=== PATIENT | female | born 1975 | race Caucasian/White ===

== ENCOUNTER 2016-11-05 19:04 | Emergency (ER) | payer OTHER ==
[~2016-11-05] VITALS: Ht 162.6 cm; Wt 75.0 kg
[~2016-11-05 19:04] MED LIST: AMLO5TAB2 PO; ASPI-973 PO; BUPR-97 PO; CARV25TA2 PO; CLOP75TA3 PO; FISHOIL ORAL; FURO40TA4 PO; INSU100I13 SUBQ; INSU100V7 SUBQ; ISOS60TA2 PO; LIP40 PO; LOSA100T29 PO; METF500T4 PO; NITR0.4T SL; SPIR25TA3 PO
[2016-11-05 19:18] VITALS: BP 142/101; PULSE 79; RESP 20; O2SAT 98
[2016-11-05 20:22] VITALS: BP 160/95; PULSE 76; RESP 18; O2SAT 99
[2016-11-05] MEDS ORDERED: LORazepam 1 mg Tablet PO ONE (20:50)
[2016-11-05 21:07] LABS: BASOPHILS % (AUTO) 0.1 % (0-3); EOSINOPHILS % (AUTO) 0.1 % (0-5); MONOCYTES % (AUTO) 3.4 % (4-12); Mean Corpuscular Hemoglobin 31.3 pg (27.0-35.0); Mean Corpuscular Volume 90.6 fL (81-100); NEUTROPHILS % (AUTO) 75.9 % (40-74); Platelet Count 195 bil/L (150-400)
--- NOTE | 2016-11-05 21:48 | ED.REPORT ---
HPI-Psychiatric Illness Date of Service Nov 05, 2016 ED Provider: Heri Rivas DO Pt is a 41 year old female with a history of HTN, CHF, hyperlipidemia and DM who presents to the ED complaining of depression. She c/o anxiety and chest pain. She denies having a plan and any other symptoms. Pt reports that she was referred to the ED by PMD. Pt states that she shouldn't be alone and "may not make it another night, but is not sure if she is suicidal. Nursing Notes Stated Complaint: PSYCH EVAL Chief Complaint: Psychiatric Complaint Nursing Notes Reviewed: Yes Allergies: Coded Allergies: lisinopril (Unverified Adverse Reaction, Unknown, cough, 11/05/16) Scheduled ([fishoil 340mg-1000mg]) 1 CAPSULE ORAL DAILY Amlodipine (Amlodipine) 5 Mg Tablet 5 MG PO DAILYWL Aspirin (Aspirin) 81 Mg Tablet 81 MG PO DAILY Atorvastatin (Lipitor) 40 Mg Tablet 40 MG PO HS Bupropion ER (Wellbutrin XL) 150 Mg Tab.er.24h 150 MG PO DAILY Carvedilol (Carvedilol) 25 Mg Tablet 12.5 MG PO BID Clopidogrel Bisulfate (Plavix) 75 Mg Tablet 75 MG PO DAILY Furosemide (Furosemide) 40 Mg Tablet 40 MG PO DAILY Insulin Glargine (Lantus U100 Solostar Insulin Pen) 100 Unit/Ml Inj 20 UNIT SUBQ HS Insulin Glargine (Lantus U100 Insulin Vial) 100 Unit/Ml Unit 10 UNIT SUBQ DAILY Isosorbide MN ER (Isosorbide MN ER) 60 Mg Tab.er.24h 60 MG PO DAILY Losartan Potassium (Losartan Potassium) 100 Mg Tablet 100 MG PO DAILY Metformin (Metformin) 500 Mg Tablet 500 MG PO BID Spironolactone (Spironolactone) 25 Mg Tablet 25 MG PO DAILY Scheduled PRN Nitroglycerin SL (Nitrostat) 0.4 Mg Subl 0.4 MG SL Q5MIN PRN PRN For Chest Pain General Time Seen by MD: 20:50 Chief Complaint Depressed Hx Obtained From: Patient Arrived By: Walk-in Onset Occurred: Onset unknown Symptom Duration: Since onset Location: : Chest Quality: Painful Severity: Current: No pain currently Severity: Maximum: Moderate Recent Healthcare: No recent doctor visit, No recent hospitalization Similar Sx Previous: No Risk-Psychiatric Illness Suicide Risk Stratification Suicide Risk Factors - Adult: : Alcohol useNo: Substance abuse RF Statements: Risk factors reviewed Past Medical History Past Medical History [place] Reports: Congestive heart failure, Diabetes mellitus, Hyperlipidemia, Hypertension Past Surgical History x6 cardiac stents Smoking History Light Tobacco Smoker Social History Alcohol Use: "Social" Drug Use: Denies drug use Other Social History: Good social support, Ambulatory Status Independent Review of Systems Constitutional: Denies: Fever Respiratory: Denies: Non-productive cough, Shortness of breath Cardiovascular: Reports: Chest pain Psychiatric: Reports: Anxiety, Depression, Suicidal ideation Complete sys rev & neg: except as marked. Physical Exam Initial Vital Signs Vital Signs (First) Date Time Temp Pulse Resp B/P Pulse Ox O2 Delivery O2 Flow Rate FiO2 11/05/16 19:18 36.9 79 20 142/101 98 Room Air Initial VS: Reviewed Head / Eyes: Atraumatic, Normocephalic Neck: Supple, Full range of motion Respiratory: Breath sounds normal, Clear to auscultation, No respiratory distress Cardiovascular: Regular rate & rhythm, Heart sounds normal, Intact distal pulses Abdomen / GI: Soft, Non-tender Extremities: Vascular intact, Neuro intact Skin: Warm, Dry, No cyanosis General/Constitutional: Awake, Alert Neurologic: Oriented X3, Speech NL, No motor deficits, No sensory deficits Abnormal Mood/Affect: Positive: Depressed Abnormal Thinking / Perception: Positive: Suicidal, no plan Scared to be alone Interpretation & Diagnostics Lab Results Interpretation Result Diagram: 11/05/16201211/05/16 2013 Test 11/05/16 20:13 11/05/16 21:09 White Blood Count 11.0th/mm3 (3.8-10.1) Red Blood Count 4.69mil/mm3 (3.90-5.20) Hemoglobin 14.7g/dL (12.0-15.6) Hematocrit 42.5% (35.0-46.0) Mean Corpuscular Volume 90.6fL (81-100) Mean Corpuscular Hemoglobin 31.3pg (27.0-35.0) Mean Corpuscular Hemoglobin Concent 34.6% (32.0-37.0) Red Cell Distribution Width 12.8% (12.3-15.4) Platelet Count 195bil/L (150-400) Neutrophils (%) (Auto) 75.9% (40-74) Lymphocytes (%) (Auto) 20.2% (14-46) Monocytes (%) (Auto) 3.4% (4-12) Eosinophils (%) (Auto) 0.1% (0-5) Basophils (%) (Auto) 0.1% (0-3) Sodium Level 142mEq/L (134-144) Potassium Level 4.0mEq/L (3.5-5.2) Chloride Level 105mEq/L (97-108) Carbon Dioxide Level 22mmol/L (18-29) Blood Urea Nitrogen 12mg/dL (6-24) Creatinine 0.67mg/dL (0.57-1.00) Estimat Glomerular Filtration Rate 138mL/min (>59) Glucose Level 111mg/dL (60-99) Calcium Level 9.6mg/dL (8.5-10.1) Total Bilirubin 0.3mg/dL (0.0-1.2) Aspartate Amino Transf (AST/SGOT) 9U/L (0-50) Alanine Aminotransferase (ALT/SGPT) 10U/L (0-32) Alkaline Phosphatase 85U/L (25-150) Total Protein 7.4g/dL (6.4-8.4) Albumin 4.7g/dL (3.4-5.0) Thyroid Stimulating Hormone (TSH) 3.080uIU/mL (0.450-4.500) Hold Urine Received (Received) Re-Eval/Medical Decision Med Decision/Clinical Course Our director of social services worked with the niece. She continues felt much better afterwards. She never had suicidal ideations. She felt comfortable being discharged. Next a follow-up was arranged for. At discharge she is awake alert oriented 4. She had no suicidal or homicidal ideations. She was sober and lucid. I felt she could make her own medical decisions and from a psychiatric standpoint I do not feel that there is acute psychiatric emergency. She will be discharged with close outpatient follow-up. Source of Hx: Old records Re-Evaluation/Progress : Time of Eval: 01:01 Re-Evaluation/Progress Note: Pt rechecked. Informed pt of plan for discharge. Pt understands and agrees with plan for discharge. F/U instructions and RTER warnings given. All questions addressed. Counseled Regarding: Diagnosis, Lab results, Need for follow-up, When/why to return to ED Discharge & Departure Impression: Primary Impression: Depression Depression Type: unspecified Qualified Code: F32.9 - Major depressive disorder, single episode, unspecified Disposition: Home Discharge Condition All VS Reviewed: Yes Condition: Stable Patient Instructions: Depression (ED) Additional Instructions: Follow up tomorrow as instructed by your director of social services. Stay on your medications. If you develop suicidal ideations, return to the Emergency Department. Do not drive tonight. You have received sedating medications. Stay with a responsible adult. Call your primary care provider tomorrow for a follow-up appointment this week. Referrals: [facility] (PCP) Yaritzaibmaria ines Attestation Portions of this note were transcribed by Sabine Knowles. I, Dr. Rivas personally performed the history, physical exam and medical decision-making; I reviewed and confirmed the accuracy of the information in the transcribed note. Signed by : Lenny Condon, 11/05/16. copies to: [facility] Todd P DO Nov 05, 2016 21:48 Sabine Cuello Nov 05, 2016 21:49
[2016-11-06 00:05] VITALS: BP 132/95; RESP 20; O2SAT 98
== END 2016-11-06 01:22 | disposition home or self-care (01) ==
LOC: SED 19:04
DX: F32.9 Major depressive disorder, single episode, unspecified (principal); I11.0 Hypertensive heart disease with heart failure; I50.9 Heart failure, unspecified; E11.9 Type 2 diabetes mellitus without complications; I25.2 Old myocardial infarction; F17.200 Nicotine dependence, unspecified, uncomplicated; Z79.4 Long term (current) use of insulin; Z79.84 Long term (current) use of oral hypoglycemic drugs